=== PATIENT | male | born 1945 | race Two or more races ===

== ENCOUNTER 2017-09-22 22:40 | Inpatient (IN) | payer OTHER, MEDICAID ==
[~2017-09-22] VITALS: Ht 182.9 cm; Wt 87.5 kg
[2017-09-22] MEDS ORDERED: ACETAMINOPHEN 325MG TABLET PO STA (23:13)
[2017-09-22] MEDS ORDERED: SODIUM CHLORIDE 0.9% 1000ML BAG (SEPSIS BOLUS) IV ONE (23:15)
[2017-09-22 23:45] LABS: CHLORIDE 106 mEq/L (98-107)
[2017-09-22 23:47] LABS: INR 1.1; PROTHROMBIN TIME 11.1 sec (9.4-11.6)
[2017-09-22 23:55] LABS: BASOPHILS % 0.3 % (0.0-2.0); EOSINOPHILS % 1.1 % (0.0-5.0); HEMATOCRIT. 42.1 % (42.0-52.0); HEMOGLOBIN. 13.9 g/dL (14.0-18.0); MEAN CORPUSCULAR HEMOGLOBIN 28.8 pg (28.0-32.0); MEAN CORPUSCULAR VOLUME 86.8 fL (80.0-94.0); MONOCYTES % 5.9 % (2.0-8.0); NEUTROPHILS % 87.7 % (40.0-76.0); PLATELET 207 x1000/uL (130-400); RED BLOOD CELL COUNT 4.84 mill/uL (4.7-6.1); RED CELL DISTRIBUTION WIDTH 13.7 % (11.6-14.6)
[2017-09-23 00:11] LABS: CLARITY URINE CLEAR (CLEAR); COLOR URINE YELLOW (YELLOW); KETONES URINE NEGATIVE (NEGATIVE); LEUKOCYTE ESTERASE URINE NEGATIVE (NEGATIVE); NITRITE URINE NEGATIVE (NEGATIVE); OCCULT BLOOD URINE 1+ (NEGATIVE); PROTEIN URINE 1+ (NEGATIVE); SPECIFIC GRAVITY URINE 1.025 (1.005-1.030); UROBILINOGEN URINE 0.2 E.U./dL (0.2-1.0)
[2017-09-23] MEDS ORDERED: CEFTRIAXONE 1 G PREMIX 50 ML IV ONE (01:15)
[2017-09-23] MEDS ORDERED: METRONIDAZOLE 500 MG PREMIX 100 ML IV ONE (02:45)
[2017-09-23 05:30] VITALS: BP 132/70
[2017-09-23] MEDS ORDERED: CLOP75TA33 PO (06:19)
[2017-09-23] MEDS ORDERED: SITA100T11 PO (06:19)
[2017-09-23] MEDS ORDERED: ISOS10TA2 PO (06:32)
[2017-09-23] MEDS ORDERED: LOSA50TA20 PO (06:32)
[2017-09-23] MEDS ORDERED: ROSU20TA PO (06:32)
[2017-09-23] MEDS ORDERED: SPIR25TA4 PO (06:32)
[2017-09-23] MEDS ORDERED: LANTUSUD SUBCUT (06:32)
[2017-09-23] MEDS ORDERED: ASPI-1158 PO (06:32)
[2017-09-23] MEDS ORDERED: CLONIDINE 0.1MG TABLET PO PRN (07:45)
[2017-09-23] MEDS ORDERED: ACETAMINOPHEN 325MG TABLET PO PRN (07:45)
[2017-09-23] MEDS ORDERED: HYDROCODONE/ACETAMINOPHEN 5/325MG TABLET PO PRN (07:45)
[2017-09-23 08:00] VITALS: BP 128/65
[2017-09-23] MEDS: DEXT 5%/0.45% NACL 1000ML 1,000 ML IV SCH (08:20)
[2017-09-23] MEDS: CLOPIDOGREL 75MG TABLET PO SCH (08:22)
[2017-09-23] MEDS: SPIRONOLACTONE 25MG TABLET PO SCH (08:22)
[2017-09-23] MEDS: LOSARTAN POTASSIUM 50 MG TABLET PO SCH (08:22)
[2017-09-23] MEDS: ASPIRIN 81MG EC TABLET PO SCH (08:22)
[2017-09-23] MEDS: ENOXAPARIN 40MG/0.4ML SYR SUBCUT SCH (08:23)
[2017-09-23] MEDS: ISOSORBIDE DINITRATE 10MG TABLET PO SCH ×3 (09:00→16:10)
[2017-09-23] MEDS: PIPERACILLIN/TAZ 3.375G PREMIX 50 ML IV SCH ×3 (09:08→20:55)
[2017-09-23 09:36] VITALS: BP 128/65
[2017-09-23 12:00] VITALS: BP 141/68
[2017-09-23 12:42] LABS: MEAN CORPUSCULAR HEMOGLOBIN 28.8 pg (28.0-32.0); MEAN CORPUSCULAR VOLUME 86.7 fL (80.0-94.0); PLATELET 185 x1000/uL (130-400); RED CELL DISTRIBUTION WIDTH 13.7 % (11.6-14.6)
[2017-09-23 12:47] LABS: CHLORIDE 108 mEq/L (98-107)
[2017-09-23 12:54] LABS: PHOSPHORUS 2.3 mg/dL (2.5-4.9)
[2017-09-23] MEDS ORDERED: DEXTROSE 50% WATER 50ML SYRINGE IV PRN (13:15)
[2017-09-23] MEDS: INSULIN LISPRO 100 UNITS/ML SUBCUT SCH ×3 (13:22→20:54)
[2017-09-23 14:59] LABS: CREATINE KINASE MB FRACTION 2.3 ng/mL (0.5-3.6)
[2017-09-23 16:00] VITALS: BP 105/55
[2017-09-23] MEDS: BLOOD SUGAR DIAGNOSTIC STRIP TEST SCH ×2 (18:20→20:54)
[2017-09-23 20:00] VITALS: BP 123/69
[2017-09-24] VITALS: BP 130/61
[2017-09-24 00:09] LABS: CREATINE KINASE MB FRACTION 1.3 ng/mL (0.5-3.6)
[2017-09-24] MEDS: DEXT 5%/0.45% NACL 1000ML 1,000 ML IV SCH ×2 (02:33→10:43)
[2017-09-24 04:00] VITALS: BP 122/65
[2017-09-24] MEDS: PIPERACILLIN/TAZ 3.375G PREMIX 50 ML IV SCH ×3 (05:45→21:07)
[2017-09-24] MEDS: BLOOD SUGAR DIAGNOSTIC STRIP TEST SCH ×4 (06:51→20:41)
[2017-09-24 07:27] LABS: CHLORIDE 105 mEq/L (98-107)
[2017-09-24 07:31] LABS: BASOPHILS % 0.4 % (0.0-2.0); EOSINOPHILS % 1.2 % (0.0-5.0); HEMATOCRIT. 38.4 % (42.0-52.0); LYMPHOCYTES % 9.1 % (20.0-50.0); MEAN CORPUSCULAR HEMOGLOBIN 29.1 pg (28.0-32.0); MEAN PLATELET VOLUME 8.2 fl (7.4-10.4); MONOCYTES % 11.8 % (2.0-8.0); NEUTROPHILS % 77.5 % (40.0-76.0); PLATELET 180 x1000/uL (130-400); RED BLOOD CELL COUNT 4.47 mill/uL (4.7-6.1); RED CELL DISTRIBUTION WIDTH 13.6 % (11.6-14.6)
[2017-09-24 07:34] LABS: LDL CHOLESTEROL 45 mg/dL (5-100)
[2017-09-24 07:35] LABS: HDL CHOLESTEROL 49 mg/dL (40-59)
[2017-09-24 07:36] LABS: T4 FREE 1.03 ng/dL (0.76-1.46)
[2017-09-24 08:00] VITALS: BP 114/57
[2017-09-24] MEDS: ASPIRIN 81MG EC TABLET PO SCH (08:09)
[2017-09-24] MEDS: CLOPIDOGREL 75MG TABLET PO SCH (08:10)
[2017-09-24] MEDS: LOSARTAN POTASSIUM 50 MG TABLET PO SCH (08:10)
[2017-09-24] MEDS: INSULIN LISPRO 100 UNITS/ML SUBCUT SCH ×4 (08:10→20:40)
[2017-09-24] MEDS: SPIRONOLACTONE 25MG TABLET PO SCH (08:10)
[2017-09-24] MEDS: ISOSORBIDE DINITRATE 10MG TABLET PO SCH ×3 (08:11→16:33)
[2017-09-24] MEDS: ENOXAPARIN 40MG/0.4ML SYR SUBCUT SCH (08:11)
[2017-09-24 12:00] VITALS: BP 129/67
[2017-09-24 16:00] VITALS: BP 111/57
[2017-09-24 20:00] VITALS: BP 105/68
[2017-09-25] VITALS: BP 125/66
[2017-09-25 04:00] VITALS: BP 128/74
[2017-09-25] MEDS: PIPERACILLIN/TAZ 3.375G PREMIX 50 ML IV SCH (06:07)
[2017-09-25 07:06] LABS: HEMATOCRIT 39.3 % (42.0-52.0); HEMOGLOBIN 13.5 g/dL (14.0-18.0); MEAN CORPUSCULAR HEMOGLOBIN 29.5 pg (28.0-32.0); MEAN CORPUSCULAR VOLUME 86.1 fL (80.0-94.0); PLATELET 202 x1000/uL (130-400); RED BLOOD CELL COUNT 4.57 mill/uL (4.7-6.1); RED CELL DISTRIBUTION WIDTH 13.7 % (11.6-14.6)
[2017-09-25 07:53] LABS: CHLORIDE 105 mEq/L (98-107)
[2017-09-25] MEDS: BLOOD SUGAR DIAGNOSTIC STRIP TEST SCH ×2 (07:54→12:57)
[2017-09-25] MEDS: INSULIN LISPRO 100 UNITS/ML SUBCUT SCH ×2 (07:54→12:57)
[2017-09-25 08:00] VITALS: BP 132/67
[2017-09-25] MEDS: ENOXAPARIN 40MG/0.4ML SYR SUBCUT SCH (09:19)
[2017-09-25] MEDS: CLOPIDOGREL 75MG TABLET PO SCH (09:19)
[2017-09-25] MEDS: LOSARTAN POTASSIUM 50 MG TABLET PO SCH (09:20)
[2017-09-25] MEDS: ISOSORBIDE DINITRATE 10MG TABLET PO SCH ×2 (09:20→13:06)
[2017-09-25] MEDS: ASPIRIN 81MG EC TABLET PO SCH (09:20)
[2017-09-25] MEDS: SPIRONOLACTONE 25MG TABLET PO SCH (09:20)
[2017-09-25 12:00] VITALS: BP 101/59
[2017-09-25 15:26] VITALS: BP 110/67
== END 2017-09-25 15:52 | disposition home or self-care (01) | DRG 872 ==
LOC: ER 22:40 → 7WST 09-23 01:18 → EDBEDREQTM 09-23 01:25 → EDBEDREQ 09-23 01:25 → EDBEDREQDT 09-23 01:25 → ENRESERV 09-23 02:00
PROVIDERS: ADMIT Internal Medicine; ATTEND Internal Medicine
DX: A41.9 Sepsis, unspecified organism (principal); E11.65 Type 2 diabetes mellitus with hyperglycemia; K57.32 Diverticulitis of large intestine without perforation or abscess without bleeding; I25.10 Atherosclerotic heart disease of native coronary artery without angina pectoris; I10 Essential (primary) hypertension; I25.2 Old myocardial infarction; Z79.02 Long term (current) use of antithrombotics/antiplatelets; Z79.82 Long term (current) use of aspirin; Z79.84 Long term (current) use of oral hypoglycemic drugs; Z79.899 Other long term (current) drug therapy
CPT/HCPCS: 36415; 71045; 74176; 80048; 80053; 80061; 81003; 82550; 82553; 82962; 83036; 83605; 83735; 83880; 84100; 84439; 84443; 84484; 85025; 85027; 85610; 87040; 87086; 87804; 93005; 93306; 96365; 96366; 96368; 99285; J0696; J1650; J1815; J2543; J3490; J7030; J7040

== ENCOUNTER 2018-06-29 08:43 | Day surgery (SDC) | payer OTHER, MEDICAID ==
[~2018-06-29] VITALS: Ht 165.1 cm; Wt 79.4 kg
[~2018-06-29 08:43] MED LIST: ASPI-1158 PO; CLOP75TA33 PO; ISOS10TA2 PO; LANTUSUD SUBCUT; LOSA50TA20 PO; ROSU20TA PO; SITA100T11 PO; SPIR25TA6 PO
[2018-06-29 09:52] LABS: HEMATOCRIT 43.8 % (42.0-52.0); HEMOGLOBIN 14.6 g/dL (14.0-18.0); MEAN CORPUSCULAR HEMOGLOBIN 29.1 pg (28.0-32.0); MEAN CORPUSCULAR VOLUME 87.3 fL (80.0-94.0); PLATELET 234 x1000/uL (130-400); RED BLOOD CELL COUNT 5.02 mill/uL (4.7-6.1); RED CELL DISTRIBUTION WIDTH 13.7 % (11.6-14.6)
[2018-06-29] MEDS ORDERED: LIDOCAINE HCL 1% 20ML VIAL (Pyxis) INJ ONE (10:15)
[2018-06-29] MEDS ORDERED: IODIXANOL 320MG/ML 100 ML BOTTLE IV ONE (10:15)
[2018-06-29 10:40] LABS: INR 1.1; PARTIAL THROMBOPLASTIN TIME 29.6 sec (23.4-31.0); PROTHROMBIN TIME 11.2 sec (9.1-11.1)
[2018-06-29] MEDS ORDERED: FENTANYL CITRATE/PF 50MCG/ML 2ML VIAL ONE (10:52)
[2018-06-29] MEDS ORDERED: MIDAZOLAM HCL 2 MG/2 ML VIAL ONE (10:52)
[2018-06-29] MEDS ORDERED: MORPHINE SULFATE 4 MG/ML CPJ (NOT FOR IM USE) IV PRN (12:45)
[2018-06-29] MEDS ORDERED: ONDANSETRON HCL 4MG/2ML INJ IV PRN (12:45)
[2018-06-29] MEDS ORDERED: ACETAMINOPHEN 325MG TABLET PO PRN (12:45)
[2018-06-29] MEDS ORDERED: HEPARIN SODIUM 1,000 UNIT/1ML VIAL IV ONE (15:01)
[2018-06-29] MEDS ORDERED: NICARDIPINE 100MCG/ML 10ML VIAL (CATH LAB) IV ONE (15:57)
[2018-06-29] MEDS ORDERED: NITROGLYCERIN 50MCG/ML 10ML VIAL (CATH LAB) IV ONE (15:57)
== END 2018-06-29 19:05 | disposition home or self-care (01) ==
LOC: CCL 08:43
PROVIDERS: ATTEND Internal Medicine Cardiovascular Disease
DX: I25.10 Atherosclerotic heart disease of native coronary artery without angina pectoris (principal); I10 Essential (primary) hypertension; E11.9 Type 2 diabetes mellitus without complications; E78.5 Hyperlipidemia, unspecified; I25.2 Old myocardial infarction; Z87.891 Personal history of nicotine dependence; Z95.5 Presence of coronary angioplasty implant and graft; Z79.01 Long term (current) use of anticoagulants
CPT/HCPCS: 36415; 80048; 85027; 85610; 85730; 93005; 93458; C1769; C1887; C1893; J1644; J2250; J3010; J3490; Q9967